=== PATIENT | male | born 1965 | race Caucasian/White ===

== ENCOUNTER 2022-05-30 18:27 | Inpatient (IN) | payer OTHER ==
[~2022-05-30] VITALS: Ht 170.2 cm; Wt 88.6 kg
[2022-05-30 18:36] VITALS: BP 153/89
[2022-05-30 19:02] LABS: HEMATOCRIT 36.3 % (42.0-52.0); MEAN CORPUSCULAR HGB 32.9 pg (27.0-31.0); MEAN PLATELET VOLUME 9.8 fl (9.6-12.3); PLATELET COUNT AUTOMATED 120 10*3/uL (130-400); RED BLOOD COUNT 3.86 10*6/uL (4.50-5.90); RED CELL DISTRI WIDTH 12.3 % (0-14.5)
[2022-05-30 19:09] LABS: MANUAL DIFF REFLEX YES
[2022-05-30] MEDS ORDERED: OMEPRAZOLE10 MG PO (19:12)
[2022-05-30] MEDS ORDERED: OMEGA-3-ACID ETH1 GM PO (19:12)
[2022-05-30] MEDS ORDERED: CLOPIDOGREL75 MG PO (19:12)
[2022-05-30 19:17] LABS: ALKALINE PHOSPHATASE 81 U/L (46-116); BUN 10 mg/dl (9-23); CHLORIDE 100 mmol/L (98-107); POTASSIUM 3.3 mmol/L (3.4-5.1); SGPT/ALT 23 U/L (10-49); TOTAL PROTEIN 6.6 gm/dL (6.0-8.0)
[2022-05-30 19:23] LABS: TOTAL CELLS COUNTED 100 #CELLS
[2022-05-30 19:24] LABS: PLATELET SUFFICIENCY LOW (NORMAL); POLYCHROMASIA SLIGHT
[2022-05-30 21:02] VITALS: BP 128/75
[2022-05-30 21:49] VITALS: BP 119/72
[2022-05-31] VITALS: BP 142/83
[2022-05-31] MEDS ORDERED: IBUPROFEN600 MG PO (01:08)
[2022-05-31] MEDS ORDERED: VIAGRA100 MG PO (01:11)
[2022-05-31] MEDS ORDERED: ZINC50 M4 PO (01:13)
[2022-05-31] MEDS ORDERED: MILK THISTLE150 MG PO (01:14)
[2022-05-31] MEDS ORDERED: VITAMIN D350 MC2 PO (01:14)
[2022-05-31 06:33] LABS: BUN 8 mg/dl (9-23); CHLORIDE 105 mmol/L (98-107); CHOLESTEROL 129 mg/dL (<200); LDL CHOLESTEROL 57 mg/dL (9-159); POTASSIUM 3.5 mmol/L (3.4-5.1); THYROID STIM HORMONE (HS) 2.219 uIU/ml (0.550-4.780); TRIGLYCERIDES 82 mg/dl (<150); URIC ACID 4.5 mg/dL (3.7-9.2)
[2022-05-31 06:37] LABS: HEMATOCRIT 37.4 % (42.0-52.0); MEAN CELL VOLUME 95.9 fl (80.0-94.0); MEAN CORPUSCULAR HGB 32.1 pg (27.0-31.0); MEAN CORPUSCULAR HGB CONC 33.4 g/dl (33.0-37.0); MEAN PLATELET VOLUME 10.1 fl (9.6-12.3); PLATELET COUNT AUTOMATED 118 10*3/uL (130-400); RED CELL DISTRI WIDTH 12.5 % (0-14.5); WHITE BLOOD COUNT 14.8 10*3/uL (4.8-10.8)
[2022-05-31 06:38] LABS: INTERNATIONAL NORM RATIO 1.1 (2.0-3.5)
[2022-05-31 06:58] LABS: MANUAL DIFF REFLEX YES
[2022-05-31 07:39] LABS: BURR CELLS FEW; PLATELET SUFFICIENCY LOW (NORMAL); POLYCHROMASIA SLIGHT; TOTAL CELLS COUNTED 100 #CELLS
[2022-05-31 08:00] VITALS: BP 152/75
[2022-05-31 12:00] VITALS: BP 152/68
[2022-05-31 16:00] VITALS: BP 150/72
[2022-05-31 20:00] VITALS: BP 154/98
[2022-06-01] VITALS (10 sets, daily range): BP systolic 124–164; BP diastolic 69–95
[2022-06-01 06:36] LABS: HEMATOCRIT 35.9 % (42.0-52.0); MEAN CELL VOLUME 94.7 fl (80.0-94.0); MEAN CORPUSCULAR HGB 33.5 pg (27.0-31.0); MEAN CORPUSCULAR HGB CONC 35.4 g/dl (33.0-37.0); MEAN PLATELET VOLUME 10.1 fl (9.6-12.3); PLATELET COUNT AUTOMATED 141 10*3/uL (130-400); RED BLOOD COUNT 3.79 10*6/uL (4.50-5.90); RED CELL DISTRI WIDTH 12.3 % (0-14.5); WHITE BLOOD COUNT 17.5 10*3/uL (4.8-10.8)
[2022-06-01 06:39] LABS: MANUAL DIFF REFLEX YES
[2022-06-01 07:13] LABS: TOTAL CELLS COUNTED 100 #CELLS
[2022-06-01 07:15] LABS: PLATELET SUFFICIENCY NORMAL (NORMAL); POLYCHROMASIA SLIGHT
[2022-06-01 07:25] LABS: BUN 7 mg/dl (9-23); CHLORIDE 104 mmol/L (98-107); POTASSIUM 3.4 mmol/L (3.4-5.1)
[2022-06-02] VITALS: BP 149/80
[2022-06-02 07:09] LABS: HEMATOCRIT 33.9 % (42.0-52.0); MEAN CELL VOLUME 95.5 fl (80.0-94.0); MEAN CORPUSCULAR HGB 32.7 pg (27.0-31.0); MEAN CORPUSCULAR HGB CONC 34.2 g/dl (33.0-37.0); PLATELET COUNT AUTOMATED 164 10*3/uL (130-400); RED BLOOD COUNT 3.55 10*6/uL (4.50-5.90); RED CELL DISTRI WIDTH 12.2 % (0-14.5)
[2022-06-02 07:13] LABS: MANUAL DIFF REFLEX YES
[2022-06-02 07:23] LABS: BUN 8 mg/dl (9-23); CHLORIDE 105 mmol/L (98-107); POTASSIUM 3.7 mmol/L (3.4-5.1)
[2022-06-02 07:52] LABS: PLATELET SUFFICIENCY NORMAL (NORMAL); TOTAL CELLS COUNTED 100 #CELLS
[2022-06-02 08:00] VITALS: BP 158/88
[2022-06-02 12:00] VITALS: BP 156/84
[2022-06-02 16:00] VITALS: BP 177/94
[2022-06-02 20:00] VITALS: BP 148/84
[2022-06-03] VITALS: BP 151/87
[2022-06-03 06:54] LABS: BASO # 0.1 10*3/uL (0.0-0.1); BASO % 0.7 % (0.0-1.0); EOS # 0.5 10*3/uL (0.0-0.4); EOS % 3.5 % (1.0-4.0); HEMATOCRIT 33.5 % (42.0-52.0); LYMPH % 22.8 % (27.0-41.0); MEAN CELL VOLUME 97.4 fl (80.0-94.0); MEAN CORPUSCULAR HGB 32.3 pg (27.0-31.0); MEAN CORPUSCULAR HGB CONC 33.1 g/dl (33.0-37.0); MEAN PLATELET VOLUME 9.8 fl (9.6-12.3); MONO # 1.5 10*3/uL (0.1-1.0); MONO % 11.1 % (3.0-9.0); NEUT % 59.6 % (47.0-73.0); PLATELET COUNT AUTOMATED 190 10*3/uL (130-400); RED BLOOD COUNT 3.44 10*6/uL (4.50-5.90); RED CELL DISTRI WIDTH 12.7 % (0-14.5); WHITE BLOOD COUNT 13.3 10*3/uL (4.8-10.8)
[2022-06-03 07:21] LABS: BUN 13 mg/dl (9-23); CHLORIDE 107 mmol/L (98-107); POTASSIUM 3.6 mmol/L (3.4-5.1)
[2022-06-03 08:00] VITALS: BP 183/94
[2022-06-03 09:05] VITALS: BP 162/88
[2022-06-03 12:00] VITALS: BP 168/70
[2022-06-03 16:00] VITALS: BP 154/96
[2022-06-03 20:00] VITALS: BP 156/90
[2022-06-04 00:06] VITALS: BP 140/80
[2022-06-04 07:04] LABS: MEAN CELL VOLUME 97.1 fl (80.0-94.0); MEAN CORPUSCULAR HGB 31.5 pg (27.0-31.0); MEAN CORPUSCULAR HGB CONC 32.4 g/dl (33.0-37.0); MEAN PLATELET VOLUME 9.3 fl (9.6-12.3); NUCLEATED RED BLOOD CELL 0.2 % (0.0-0.0); PLATELET COUNT AUTOMATED 193 10*3/uL (130-400); RED CELL DISTRI WIDTH 12.7 % (0-14.5); WHITE BLOOD COUNT 13.2 10*3/uL (4.8-10.8)
[2022-06-04 07:12] LABS: BUN 8 mg/dl (9-23); CHLORIDE 105 mmol/L (98-107); POTASSIUM 3.6 mmol/L (3.4-5.1)
[2022-06-04 07:13] LABS: MANUAL DIFF REFLEX YES
[2022-06-04 07:49] LABS: TOTAL CELLS COUNTED 100 #CELLS
[2022-06-04 07:50] LABS: PLATELET SUFFICIENCY NORMAL (NORMAL)
[2022-06-04 08:00] VITALS: BP 164/90
[2022-06-04 12:00] VITALS: BP 162/90
[2022-06-04] MEDS ORDERED: VIBRA-TAB100 MG PO (13:11)
[2022-06-04] MEDS ORDERED: LISINOPRIL5 MG PO (13:11)
[2022-06-04] MEDS ORDERED: HYDROCODONE-AC1 EAC1 PO (13:12)
== END 2022-06-04 14:10 | disposition home health service (06) | DRG 854 ==
LOC: ED 18:27 → EDHOLD 21:00 → 4E 21:00
PROVIDERS: Internal Medicine; Student in an Organized Health Care Education/Training Program; ADMIT Internal Medicine; ATTEND Internal Medicine
PROC: 0JBH0ZZ Excision of Left Lower Arm Subcutaneous Tissue and Fascia, Open Approach (ICD-10-PCS; principal; 2022-05-30)
PROC: 3E0T3BZ Introduction of Anesthetic Agent into Peripheral Nerves and Plexi, Percutaneous Approach (ICD-10-PCS; 2022-06-01)
PROC: 3E0T33Z Introduction of Anti-inflammatory into Peripheral Nerves and Plexi, Percutaneous Approach (ICD-10-PCS; 2022-06-01)
DX: A41.9 Sepsis, unspecified organism (principal); E44.0 Moderate protein-calorie malnutrition; L03.114 Cellulitis of left upper limb; E87.1 Hypo-osmolality and hyponatremia; L02.414 Cutaneous abscess of left upper limb; I73.9 Peripheral vascular disease, unspecified; E78.5 Hyperlipidemia, unspecified; K21.9 Gastro-esophageal reflux disease without esophagitis; E66.01 Morbid (severe) obesity due to excess calories; D64.9 Anemia, unspecified; D69.6 Thrombocytopenia, unspecified; E87.6 Hypokalemia; R73.9 Hyperglycemia, unspecified; Z68.30 Body mass index [BMI] 30.0-30.9, adult; Z88.6 Allergy status to analgesic agent

== ENCOUNTER → 2022-06-16 | Outpatient (CLI) | payer OTHER ==
[~2022-06-16] MED LIST: CLOPIDOGREL75 MG PO; HYDROCODONE-AC1 EAC1 PO; IBUPROFEN600 MG PO; LISINOPRIL5 MG PO; MILK THISTLE150 MG PO; OMEGA-3-ACID ETH1 GM PO; OMEPRAZOLE10 MG PO; VIAGRA100 MG PO; VIBRA-TAB100 MG PO; VITAMIN D350 MC2 PO; ZINC50 M4 PO
== END | disposition home or self-care (01) ==
LOC: WOUNDCARE 01:58
PROVIDERS: ATTEND Nurse Practitioner Family
DX: S51.002A Unspecified open wound of left elbow, initial encounter (principal); R60.0 Localized edema; E78.5 Hyperlipidemia, unspecified; D69.6 Thrombocytopenia, unspecified; E66.01 Morbid (severe) obesity due to excess calories; I73.9 Peripheral vascular disease, unspecified; K21.9 Gastro-esophageal reflux disease without esophagitis; X58.XXXA Exposure to other specified factors, initial encounter; Y93.89 Activity, other specified; Y92.89 Other specified places as the place of occurrence of the external cause; Y99.8 Other external cause status

== ENCOUNTER → 2022-06-22 | Outpatient (CLI) | payer OTHER | LOC: WOUNDCARE 01:12 | PROVIDERS: ATTEND Nurse Practitioner Family | DX: S51.002D Unspecified open wound of left elbow, subsequent encounter (principal); R60.0 Localized edema; I73.9 Peripheral vascular disease, unspecified; E66.01 Morbid (severe) obesity due to excess calories; D69.6 Thrombocytopenia, unspecified; E78.5 Hyperlipidemia, unspecified; K21.9 Gastro-esophageal reflux disease without esophagitis; X58.XXXD Exposure to other specified factors, subsequent encounter ==

== ENCOUNTER → 2022-06-30 | Outpatient (CLI) | payer OTHER | END | disposition home or self-care (01) | LOC: WOUNDCARE 00:40 | PROVIDERS: ATTEND Nurse Practitioner Family | DX: S51.002D Unspecified open wound of left elbow, subsequent encounter (principal); R60.0 Localized edema; I73.9 Peripheral vascular disease, unspecified; E66.01 Morbid (severe) obesity due to excess calories; D69.6 Thrombocytopenia, unspecified; E78.5 Hyperlipidemia, unspecified; K21.9 Gastro-esophageal reflux disease without esophagitis; Z95.820 Peripheral vascular angioplasty status with implants and grafts; X58.XXXD Exposure to other specified factors, subsequent encounter ==

== ENCOUNTER → 2022-07-01 | Outpatient (CLI) | payer OTHER | END | disposition home or self-care (01) | LOC: WOUNDCARE 12:17 | PROVIDERS: ATTEND Nurse Practitioner Family | DX: S51.002D Unspecified open wound of left elbow, subsequent encounter (principal); R60.0 Localized edema; I73.9 Peripheral vascular disease, unspecified; E66.01 Morbid (severe) obesity due to excess calories; E78.5 Hyperlipidemia, unspecified; D69.6 Thrombocytopenia, unspecified; K21.9 Gastro-esophageal reflux disease without esophagitis; X58.XXXD Exposure to other specified factors, subsequent encounter ==

== ENCOUNTER → 2022-07-07 | Outpatient (CLI) | payer OTHER | END | disposition home or self-care (01) | LOC: WOUNDCARE 01:39 | PROVIDERS: ATTEND Nurse Practitioner Family | DX: S51.002D Unspecified open wound of left elbow, subsequent encounter (principal); R60.0 Localized edema; E66.01 Morbid (severe) obesity due to excess calories; E78.5 Hyperlipidemia, unspecified; D69.6 Thrombocytopenia, unspecified; I73.9 Peripheral vascular disease, unspecified; K21.9 Gastro-esophageal reflux disease without esophagitis; X58.XXXD Exposure to other specified factors, subsequent encounter ==

== ENCOUNTER → 2022-07-14 | Outpatient (CLI) | payer OTHER | END | disposition home or self-care (01) | LOC: WOUNDCARE 00:31 | PROVIDERS: ATTEND Nurse Practitioner Family | DX: S51.002D Unspecified open wound of left elbow, subsequent encounter (principal); L02.818 Cutaneous abscess of other sites; R60.0 Localized edema; I73.9 Peripheral vascular disease, unspecified; E66.01 Morbid (severe) obesity due to excess calories; D69.6 Thrombocytopenia, unspecified; E78.5 Hyperlipidemia, unspecified; K21.9 Gastro-esophageal reflux disease without esophagitis; X58.XXXD Exposure to other specified factors, subsequent encounter ==

== ENCOUNTER → 2022-07-28 | Outpatient (CLI) | payer OTHER | END | disposition home or self-care (01) | LOC: WOUNDCARE 07-20 01:34 | PROVIDERS: ATTEND Nurse Practitioner Family | DX: S51.002D Unspecified open wound of left elbow, subsequent encounter (principal); R60.0 Localized edema; I73.9 Peripheral vascular disease, unspecified; E66.01 Morbid (severe) obesity due to excess calories; D69.6 Thrombocytopenia, unspecified; E78.5 Hyperlipidemia, unspecified; K21.9 Gastro-esophageal reflux disease without esophagitis; X58.XXXD Exposure to other specified factors, subsequent encounter ==

== ENCOUNTER → 2022-08-24 | Outpatient (CLI) | payer OTHER | END | disposition home or self-care (01) | LOC: WOUNDCARE 01:49 | PROVIDERS: ATTEND Nurse Practitioner Family | DX: L02.414 Cutaneous abscess of left upper limb (principal); L53.9 Erythematous condition, unspecified; I73.9 Peripheral vascular disease, unspecified; E66.01 Morbid (severe) obesity due to excess calories; E78.5 Hyperlipidemia, unspecified; D69.6 Thrombocytopenia, unspecified; I10 Essential (primary) hypertension; K21.9 Gastro-esophageal reflux disease without esophagitis; M25.522 Pain in left elbow ==

== ENCOUNTER → 2022-08-31 | Outpatient (CLI) | payer OTHER | END | disposition home or self-care (01) | LOC: WOUNDCARE 00:40 | PROVIDERS: ATTEND Nurse Practitioner Family | DX: L02.414 Cutaneous abscess of left upper limb (principal); L53.9 Erythematous condition, unspecified; M25.522 Pain in left elbow; I73.9 Peripheral vascular disease, unspecified; E66.01 Morbid (severe) obesity due to excess calories; D69.6 Thrombocytopenia, unspecified; E78.5 Hyperlipidemia, unspecified; K21.9 Gastro-esophageal reflux disease without esophagitis; Z68.30 Body mass index [BMI] 30.0-30.9, adult ==

== ENCOUNTER → 2022-09-07 | Outpatient (CLI) | payer OTHER | END | disposition home or self-care (01) | LOC: WOUNDCARE 02:11 | PROVIDERS: ATTEND Nurse Practitioner Family | DX: L02.414 Cutaneous abscess of left upper limb (principal); L53.9 Erythematous condition, unspecified; E66.01 Morbid (severe) obesity due to excess calories; E78.5 Hyperlipidemia, unspecified; D69.6 Thrombocytopenia, unspecified; I73.9 Peripheral vascular disease, unspecified; K21.9 Gastro-esophageal reflux disease without esophagitis; M25.522 Pain in left elbow ==